=== PATIENT | male | born 1975 | race Two or more races ===

== ENCOUNTER 2016-05-25 11:35 | Inpatient (IN) | payer OTHER ==
[2016-05-25 11:53] VITALS: BMI 31.7
--- NOTE | 2016-05-25 13:36 | HP ---
CIWA Score - CIWA Score Nausea/Vomitin-No Nausea/No Vomiting Muscle Tremors: 4-Moderate,w/Arms Extend Anxiety: 4-Mod. Anxious/Guarded Agitation: 3 Paroxysmal Sweats: 4-Forehead w/Sweat Beads Orientation: 0-Oriented Tacttile Disturbances: 3-Moderate Itch/Numb/Burn Auditory Disturbances: 0-None Visual Disturbances: 0-None Headache: 0-None Present CIWA-Ar Total Score: 18 Admission ROS S - HPI Chief Complaint: DETOX TX FOR ALCOHOL DEPENDENCE Allergies/Adverse Reactions: Allergies Allergy/AdvReac Type Severity Reaction Status Date / Time shrimp Allergy Severe Swelling Verified 05/25/16 12:41 No Known Drug Allergies Allergy Mild Verified 05/25/16 12:41 History of Present Illness: 40 Y/O H/M WITH A HX OF ALCOHOL,COCAINE,MARIJUANA DEPENDENCE SEEKING DETOX TX. PT IS ON H.E.L.P.-MMTP. PT ALSO USES KLONOPIN AND K2 SPORADICALLY. Exam Limitations: No Limitations - Ebola screening Have you traveled outside of the country in the last 21 days: No Have you had contact with anyone from an Ebola affected area: No Have you been sick,other than usual withdrawal symptoms: No Do you have a fever: No - Review of Systems Constitutional: Chills, Diaphoresis, Loss of Appetite, Night Sweats EENT: reports: Blurred Vision, Tearing, Nose Congestion Respiratory: reports: No Symptoms reported Cardiac: reports: Lightheadedness GI: reports: Vomiting : reports: No Symptoms Reported Musculoskeletal: reports: Muscle Pain (AND SPASMS) Integumentary: reports: No Symptoms Reported Neuro: reports: Tremors, Unsteady Gait, Dizziness Endocrine: reports: No Symptoms Reported Hematology: reports: No Symptoms Reported Psychiatric: reports: Orientated x3, Anxious, Depressed Other Systems: Reviewed and Negative Patient History - Patient Medical History Hx Anemia: No Hx Asthma: No Hx Chronic Obstructive Pulmonary Disease (COPD): No Hx Cancer: No Hx Cardiac Disorders: No Hx Congestive Heart Failure: No Hx Hypertension: No Hx Hypercholesterolemia: No Hx Pacemaker: No HX Cerebrovascular Accident: No Hx Seizures: No Hx Dementia: No Hx Diabetes: No Hx Gastrointestinal Disorders: No Hx Liver Disease: No Hx Genitourinary Disorders: No Hx Sexually Transmitted Disorders: No Hx Renal Disease (ESRD): No Hx Thyroid Disease: No Hx Human Immunodeficiency Virus (HIV): No (LAST 10/15/14) Hx Hepatitis C: No Hx Depression: Yes (ON MEDS) Hx Suicide Attempt: Yes (Tried to jump on train tracks in 2012;DENIES CURRENT IDEATIONS.) Hx Bipolar Disorder: Yes Hx Schizophrenia: No - Patient Surgical History Past Surgical History: No Hx Neurologic Surgery: No Hx Cataract Extraction: No Hx Cardiac Surgery: No Hx Lung Surgery: No Hx Breast Surgery: No Hx Breast Biopsy: No Hx Abdominal Surgery: No Hx Appendectomy: No Hx Cholecystectomy: No Hx Genitourinary Surgery: No Hx Orthopedic Surgery: No Anesthesia Reaction: No - PPD History Previous Implant?: Yes Documented Results: Negative w/o proof Implanted On Prior R Admission?: Yes Date: 10/17/14 Results: 0 MM PPD to be Administered?: Yes - Reproductive History Patient is a Female of Child Bearing Age (11 -55 yrs old): No (MALE) - Smoking Cessation Smoking history: Current every day smoker Have you smoked in the past 12 months: Yes Aproximately how many cigarettes per day: 5 Hx Chewing Tobacco Use: No Initiated information on smoking cessation: Yes 'Breaking Loose' booklet given: 05/25/16 - Substance & Tx. History Hx Alcohol Use: Yes (BARCADI) Hx Substance Use: Yes (COCAINE/PCP/K2/MARIJUANA/KLONOPIN) Substance Use Type: Alcohol, Cocaine, Marijuana, Tranquilizers Hx Substance Use Treatment: Yes ([facility]) - Substances Abused Alcohol Route: Oral Frequency: Daily Amount used: 1 AND 1/2 PINTS VODKA Age of first use: 27 Date of Last Use: 05/24/16 PCP Route: Smoking Frequency: Daily Amount used: 1 JOINT Age of first use: 30 Date of Last Use: 05/24/16 Cocaine Route: Injection Frequency: Daily Amount used: 3-4 BAGS Age of first use: 27 Date of Last Use: 05/23/16 K2 Route: Smoking Frequency: Daily Amount used: 1-2 JOINTS Age of first use: 40 Date of Last Use: 05/24/16 Family Disease History - Family Disease History Family Disease History: Diabetes: Mother ( 2009) Admission Physical Exam BHS - Vital Signs Vital Signs: Vital Signs - 24 hr 05/25/16 11:50 Temperature 97.2 F L Pulse Rate 69 Respiratory 18 Rate Blood Pressure 105/56 - Physical General Appearance: Yes: Moderate Distress, Obese, Irritable, Sweating, Anxious HEENTM: Yes: EOMI, Normocephalic, MARI, Pharynx Normal Respiratory: Yes: Chest Non-Tender, Lungs Clear, Normal Breath Sounds, No Respiratory Distress Breast: Yes: Breast Exam Deferred Cardiology: Yes: Regular Rhythm, Regular Rate, S1, S2 Abdominal: Yes: Normal Bowel Sounds, Non Tender, Soft Genitourinary: Yes: Other (N/C) Back: Yes: Within Normal Limits Musculoskeletal: Yes: full range of Motion, Gait Steady Extremities: Yes: Normal Range of Motion, Non-Tender 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 NML intact, Fully Oriented, Alert, Motor Strength 5/5 Integumentary: Yes: Warm, Diaphoresis, Moist Lymphatic: Yes: Within Normal Limits - Diagnostic (1) Alcohol dependence with uncomplicated withdrawal Current Visit: Yes Status: Acute (2) Nicotine dependence Current Visit: Yes Status: Acute Qualifiers: Nicotine product type: cigarettes Substance use status: in withdrawal Qualified Code(s): F17.213 - Nicotine dependence, cigarettes, with withdrawal (3) Cocaine dependence, uncomplicated Current Visit: Yes Status: Acute (4) Cannabis dependence, uncomplicated Current Visit: Yes Status: Acute (5) PCP dependence Current Visit: Yes Status: Acute (6) Methadone maintenance therapy patient Current Visit: Yes Status: Chronic Cleared for Admission [facility] - Detox or Rehab [facility] Level of Care: Medically Managed Detox Regimen/Protocol: Librium [facility] Breath Alcohol Content Breath Alcohol Content: 0 Urine Drug Screen - Results Drug Screen Negative: No Urine Drug Screen Results: THC-Marijuana, SOURAV-Cocaine, PCP-Phencyclidine, MTD- Methadone
[2016-05-25] MEDS ORDERED: MAGNESIUM HYDROX 2400MG/30ML ORAL SUSPENSION 30 ML CUP PO PRN (13:47)
[2016-05-25] MEDS ORDERED: ACETAMINOPHEN 325 MG TABLET (FP) PO PRN (13:47)
[2016-05-25] MEDS ORDERED: NICOTINE POLACRILEX 4 MG GUM BUC PRN (13:47)
[2016-05-25] MEDS ORDERED: MAGNESIUM CITRATE 300 ML BOTTLE PO PRN (13:47)
[2016-05-25] MEDS ORDERED: IBUPROFEN 400 MG TABLET (FP) PO PRN (13:47)
[2016-05-25] MEDS ORDERED: diphenhydrAMINE HCL 50 MG CAPSULE PO PRN (13:47)
[2016-05-25] MEDS ORDERED: hydrOXYzine PAMOATE 25 MG CAPSULE (FP) PO PRN (13:47)
[2016-05-25] MEDS ORDERED: MAG HYDROX/AL HYDROX/SIMETH 30 ML UNIT-DOSE CUP PO PRN (13:47)
[2016-05-25] MEDS ORDERED: chlordiazePOXIDE HCL 25 MG CAPSULE PO PRN (13:47)
[2016-05-25] MEDS ORDERED: guaiFENesin/D-METHORPHAN HB 10 ML UNIT-DOSE CUPS PO PRN (13:47)
[2016-05-25] MEDS ORDERED: LOPERAMIDE HCL 2 MG CAPSULE PO PRN (13:47)
[2016-05-25] MEDS ORDERED: P-EPHED 60MG/TRIPROLIDI 2.5MG TABLET PO PRN (13:47)
[2016-05-25] MEDS ORDERED: MENTHOL/PHENOL 1 EACH UD MM PRN (13:47)
[2016-05-25] MEDS ORDERED: chlordiazePOXIDE HCL 25 MG CAPSULE PO ONE (14:05)
[2016-05-25] MEDS: NICOTINE 21 MG/24 HOURS TOPICAL PATCH TD SCH (14:58)
[2016-05-25] MEDS: chlordiazePOXIDE HCL 25 MG CAPSULE PO SCH ×2 (17:02→22:37)
[2016-05-25 20:17] LABS: URINE APPEARANCE CLEAR; URINE BILIRUBIN NEGATIVE (NEGATIVE); URINE BLOOD NEGATIVE (NEGATIVE); URINE COLOR YELLOW; URINE GLUCOSE (UA) NEGATIVE (NEGATIVE); URINE KETONE NEGATIVE (NEGATIVE); URINE LEUK ESTERASE NEGATIVE (NEGATIVE); URINE NITRITE NEGATIVE (NEGATIVE); URINE PROTEIN NEGATIVE (NEGATIVE); URINE UROBILINOGEN NEGATIVE E.U./dl (0.2-1.0)
[2016-05-25 20:36] LABS: HIV 1 & 2 AB NEGATIVE; HIV 1 AGp24 NEGATIVE
[2016-05-25] MEDS: THIAMINE HCL 100 MG TABLET (FP) PO SCH (22:37)
[2016-05-26] MEDS ORDERED: METHADONE HCL 40 MG DISPERSABLE TABLET ONE (04:57)
[2016-05-26] MEDS ORDERED: METHADONE HCL 10 MG TABLET ONE (04:57)
[2016-05-26] MEDS: METHADONE 40 MG, METHADONE 20 MG PO SCH (05:42)
[2016-05-26] MEDS: chlordiazePOXIDE HCL 25 MG CAPSULE PO SCH ×4 (05:43→22:37)
[2016-05-26] MEDS ORDERED: METHADONE HCL 10 MG TABLET PO SCH (06:00)
[2016-05-26 10:01] LABS: MCH 26.7 pg (25.7-33.7); MCHC 31.9 g/dl (32.0-35.9); MEAN CELL VOLUME 83.7 fl (80-96); MEAN PLT VOLUME 8.7 fl (7.5-11.1); PLATELET COUNT 185 K/MM3 (134-434); RDW 15.4 % (11.9-15.9); WHITE BLOOD COUNT 5.8 K/mm3 (4.0-10.0)
[2016-05-26 10:29] LABS: ALK PHOS 115 U/L (45-117); ANION GAP 7 (8-16); BILIRUBIN,TOTAL 0.4 mg/dL (0.2-1.0); CALCIUM 8.5 mg/dL (8.5-10.1); CO2 29 mmol/L (21-32); CREATININE 1.1 mg/dL (0.7-1.3); GLUCOSE,RANDOM 106 mg/dL (74-106); SGOT/AST 25 U/L (15-37); SGPT/ALT 43 U/L (12-78); TOT PROT 7.8 g/dl (6.4-8.2)
[2016-05-26] MEDS: PRENATAL VITAMINS W/ FOLIC ACID TABLET (FP) PO SCH (10:44)
[2016-05-26] MEDS: NICOTINE 21 MG/24 HOURS TOPICAL PATCH TD SCH (10:45)
[2016-05-26] MEDS ORDERED: ONDANSETRON *ODT* 4 MG TABLET SL PRN (11:19)
--- NOTE | 2016-05-26 11:20 | CONSULT ---
[facility] Psychiatric Consult - Data Date of interview: 05/26/16 Admission source: [facility] Identifying data: Another admission to [facility] for this 40 y/o male seeking detoxification treatment on [address] for alcohol,cocaine,opioid,nicotine, marijuana (K2) and benzodiazepine (klonopin) dependence.Patient is single without children,homeless ([facility] senior living),unemployed and supported on food stamps ( SSI benefits were cancelled during incarceration). Substance Abuse History: - Smoking Cessation. Smoking history: Current every day smoker. Have you smoked in the past 12 months: Yes. Aproximately how many cigarettes per day: 5. Hx Chewing Tobacco Use: No. Initiated information on smoking cessation: Yes. 'Breaking Loose' booklet given: 05/25/16. - Substance & Tx. History. Hx Alcohol Use: Yes (BARCADI). Hx Substance Use: Yes (COCAINE/ PCP/K2/MARIJUANA/KLONOPIN). Substance Use Type: Alcohol, Cocaine, Marijuana, Tranquilizers. Hx Substance Use Treatment: Yes ([facility]-DETOX). - Substances Abused. Alcohol. Route: Oral. Frequency: Daily. Amount used: 1 AND 1/2 PINTS VODKA. Age of first use: 27. Date of Last Use: 05/24/16. PCP. Route : Smoking. Frequency: Daily. Amount used: 1 JOINT. Age of first use: 30. Date of Last Use: 05/24/16. Cocaine. Route: Injection. Frequency: Daily. Amount used: 3-4 BAGS. Age of first use: 27. Date of Last Use: 05/23/16. K2. Route: Smoking. Frequency: Daily. Amount used: 1-2 JOINTS. Age of first use: 40. Date of Last Use: 05/24/16. Confirmed by the patient in this session. Medical History: Hepatitis C,as per self-report. Psychiatric History: Patient denies history of psychiatric hospitalizations.Known to the Mental Health system for several years.Diagnosed with Learning Disability (years with SSI benefits until incarceration).[facility] medications (olanzapine,risperdal,zoloft and others not recalled by patient).He endorses multiple diagnoses,including Bipolar Disorder, ONEIL,Schizophrenia.Patient admits to previous suicide attempts via hanging (2002 ) and self mutilation (wrist cutting).He is known to several facilities: [facility] [phone] + [facility] in [phone] + [facility] in [phone].Lost to follow up since his release from [facility] (served 5 years) in 2013.Mr Hernandez is curretly followed at the [facility] program in [facility].He is maintained on a regimen of lithium carbonte 300 mg/hs + zoloft 100 mg/day + zyprexa 10 mg/hs + ambien 10 mg/hs.Medications are confirmed by review of pharmacy claims (filled scripts for 05/21/16).Patient is on methadone maintenace (60 mg/day). Physical/Sexual Abuse/Trauma History: Patient denies history of sexual abuse. Additional Comment: Urine Drug Screen Results: THC-Marijuana, SOURAV-Cocaine, PCP- Phencyclidine, MTD-Methadone.Noted. Mental Status Exam - Mental Status Exam Alert and Oriented to: Time, Place, Person Cognitive Function: Good Patient Appearance: Well Groomed (tattoos on forearms) Mood: Hopeful, Euthymic Affect: Appropriate, Normal Range Patient Behavior: Appropriate, Cooperative Speech Pattern: Clear Voice Loudness: Normal Thought Process: Goal Oriented Thought Disorder: Not Present Hallucinations: Denies Suicidal Ideation: Denies Homicidal Ideation: Denies Insight/Judgement: Poor Sleep: Poorly, Difficulty falling asleep Appetite: Good Muscle strength/Tone: Normal Gait/Station: Normal Psychiatric Findings - Problem List ([place] 1, 2,3) (1) Alcohol dependence with uncomplicated withdrawal Current Visit: Yes Status: Acute (2) Cannabis dependence, uncomplicated Current Visit: Yes Status: Acute (3) Cocaine dependence, uncomplicated Current Visit: Yes Status: Acute (4) Nicotine dependence Current Visit: Yes Status: Acute Qualifiers: Nicotine product type: cigarettes Substance use status: in withdrawal Qualified Code(s): F17.213 - Nicotine dependence, cigarettes, with withdrawal (5) PCP dependence Current Visit: Yes Status: Acute (6) Opioid dependence with withdrawal Current Visit: Yes Status: Acute (7) Opioid dependence on agonist therapy Current Visit: Yes Status: Acute (8) Substance induced mood disorder Current Visit: Yes Status: Acute (9) Schizoaffective disorder Current Visit: Yes Status: Chronic (10) Essential hypertension Current Visit: Yes Status: Chronic (11) Insomnia Current Visit: Yes Status: Acute - Initial Treatment Plan Initial Treatment Plan: Psychoeducation.Detoxification.Medications as listed in Psychiatric History section.Preakness level is requested.Will follow results.Side effects/benefits discussed with the patient.He agrees with this plan of care.Observation.No need for scripts at discharge.
--- NOTE | 2016-05-26 12:25 | PN ---
[facility] CIWA - CIWA Score Nausea/Vomitin-No Nausea/No Vomiting Muscle Tremors: 4-Moderate,w/Arms Extend Anxiety: 4-Mod. Anxious/Guarded Agitation: 4-Moderately Restless Paroxysmal Sweats: 1-Minimal Palms Moist Orientation: 0-Oriented Tacttile Disturbances: 3-Moderate Itch/Numb/Burn Auditory Disturbances: 0-None Visual Disturbances: 0-None Headache: 0-None Present CIWA-Ar Total Score: 16 S Progress Note (SOAP) Subjective: ANXIETY, TREMORS, SWEATS, NAUSEA/VOMITING. Objective: 05/26/16 12:25 Vital Signs Temperature 97.0 F L 05/26/16 09:55 Pulse Rate 64 05/26/16 09:55 Respiratory Rate 18 05/26/16 09:55 Blood Pressure 121/79 05/26/16 09:55 O2 Sat by Pulse Oximetry (%) Laboratory Last Values WBC 5.8 K/mm3 (4.0-10.0) 05/26/16 06:00 RBC 4.90 M/mm3 (4.00-5.60) 05/26/16 06:00 Hgb 13.1 GM/dL (11.7-16.9) 05/26/16 06:00 Hct 41.0 % (35.4-49) 05/26/16 06:00 MCV 83.7 fl (80-96) 05/26/16 06:00 MCHC 31.9 g/dl (32.0-35.9) L 05/26/16 06:00 RDW 15.4 % (11.9-15.9) 05/26/16 06:00 Plt Count 185 K/MM3 (134-434) D 05/26/16 06:00 MPV 8.7 fl (7.5-11.1) 05/26/16 06:00 Sodium 138 mmol/L (136-145) 05/26/16 06:00 Potassium 4.5 mmol/L (3.5-5.1) 05/26/16 06:00 Chloride 102 mmol/L (98-107) 05/26/16 06:00 Carbon Dioxide 29 mmol/L (21-32) 05/26/16 06:00 Anion Gap 7 (8-16) L 05/26/16 06:00 BUN 11 mg/dL (7-18) 05/26/16 06:00 Creatinine 1.1 mg/dL (0.7-1.3) D 05/26/16 06:00 Creat Clearance w eGFR > 60 (>60) 05/26/16 06:00 Random Glucose 106 mg/dL (74-106) 05/26/16 06:00 Calcium 8.5 mg/dL (8.5-10.1) 05/26/16 06:00 Total Bilirubin 0.4 mg/dL (0.2-1.0) 05/26/16 06:00 AST 25 U/L (15-37) D 05/26/16 06:00 ALT 43 U/L (12-78) D 05/26/16 06:00 Alkaline Phosphatase 115 U/L (45-117) 05/26/16 06:00 Total Protein 7.8 g/dl (6.4-8.2) 05/26/16 06:00 Albumin 4.0 g/dl (3.4-5.0) 05/26/16 06:00 Urine Color Yellow 05/25/16 19:30 Urine Appearance Clear 05/25/16 19:30 Urine pH 5.0 (5.0-8.0) D 05/25/16 19:30 Ur Specific [place] 1.019 (1.001-1.035) 05/25/16 19:30 Urine Protein Negative (NEGATIVE) 05/25/16 19:30 Urine Glucose (UA) Negative (NEGATIVE) 05/25/16 19:30 Urine Ketones Negative (NEGATIVE) 05/25/16 19:30 Urine Blood Negative (NEGATIVE) 05/25/16 19:30 Urine Nitrite Negative (NEGATIVE) 05/25/16 19:30 Urine Bilirubin Negative (NEGATIVE) 05/25/16 19:30 Urine Urobilinogen Negative E.U./dl (0.2-1.0) 05/25/16 19:30 Ur Leukocyte Esterase Negative (NEGATIVE) 05/25/16 19:30 Hepatitis C Antibody >11.0 s/co ratio (0.0-0.9) H 05/25/16 13:50 HIV 1&2 Antibody Screen Negative 05/25/16 13:00 HIV P24 Antigen Negative 05/25/16 13:00 Assessment: 05/26/16 12:25 WITHDRAWAL SX Plan: CONTINUE DETOX
--- NOTE | 2016-05-26 12:53 | EKG ---
Test Reason : Blood Pressure : / mmHG Vent. Rate : 053 BPM Atrial Rate : 053 BPM P-R Int : 172 ms QRS Dur : 102 ms QT Int : 426 ms P-R-T Axes : 048 051 018 degrees QTc Int : 399 ms SINUS BRADYCARDIA OTHERWISE NORMAL ECG NO PREVIOUS ECGS AVAILABLE Confirmed by SWATI ISIDRO, ROXIE ([id number]) on 05/26/2016 12:53:10 PM Referred By: Confirmed By:ROXIE LONGORIA MD
[2016-05-26] MEDS: SERTRALINE HCL 50 MG TABLET (FP) PO SCH (15:46)
[2016-05-26] MEDS: OLANZapine 10 MG TABLET PO SCH (22:37)
[2016-05-26] MEDS: LITHIUM CARBONATE 300 MG CAPSULE (FP) PO SCH (22:37)
[2016-05-26] MEDS: THIAMINE HCL 100 MG TABLET (FP) PO SCH (22:37)
[2016-05-26] MEDS: ZOLPIDEM TARTRATE 10 MG TABLET (PARK CARE ONLY) PO PRN (22:38)
[2016-05-27] MEDS ORDERED: METHADONE HCL 10 MG TABLET ONE (03:05)
[2016-05-27] MEDS ORDERED: METHADONE HCL 40 MG DISPERSABLE TABLET ONE (03:05)
[2016-05-27] MEDS: chlordiazePOXIDE HCL 25 MG CAPSULE PO SCH ×2 (05:58→10:39)
[2016-05-27] MEDS: METHADONE 40 MG, METHADONE 20 MG PO SCH (05:58)
[2016-05-27] MEDS: NICOTINE 21 MG/24 HOURS TOPICAL PATCH TD SCH (10:39)
[2016-05-27] MEDS: SERTRALINE HCL 50 MG TABLET (FP) PO SCH (10:39)
[2016-05-27] MEDS: PRENATAL VITAMINS W/ FOLIC ACID TABLET (FP) PO SCH (10:39)
--- NOTE | 2016-05-27 11:12 | PN ---
[facility] CIWA - CIWA Score Nausea/Vomitin-No Nausea/No Vomiting Muscle Tremors: 4-Moderate,w/Arms Extend Anxiety: 4-Mod. Anxious/Guarded Agitation: 4-Moderately Restless Paroxysmal Sweats: 1-Minimal Palms Moist Orientation: 0-Oriented Tacttile Disturbances: 3-Moderate Itch/Numb/Burn Auditory Disturbances: 0-None Visual Disturbances: 0-None Headache: 0-None Present CIWA-Ar Total Score: 16 BHS Progress Note (SOAP) Subjective: ANXIETY,SWEATS,DECREASED TREMORS. Objective: 05/27/16 11:11 Vital Signs Temperature 97.4 F L 05/27/16 10:56 Pulse Rate 70 05/27/16 10:56 Respiratory Rate 18 05/27/16 10:56 Blood Pressure 113/68 05/27/16 10:56 O2 Sat by Pulse Oximetry (%) Laboratory Last Values WBC 5.8 K/mm3 (4.0-10.0) 05/26/16 06:00 RBC 4.90 M/mm3 (4.00-5.60) 05/26/16 06:00 Hgb 13.1 GM/dL (11.7-16.9) 05/26/16 06:00 Hct 41.0 % (35.4-49) 05/26/16 06:00 MCV 83.7 fl (80-96) 05/26/16 06:00 MCHC 31.9 g/dl (32.0-35.9) L 05/26/16 06:00 RDW 15.4 % (11.9-15.9) 05/26/16 06:00 Plt Count 185 K/MM3 (134-434) D 05/26/16 06:00 MPV 8.7 fl (7.5-11.1) 05/26/16 06:00 Sodium 138 mmol/L (136-145) 05/26/16 06:00 Potassium 4.5 mmol/L (3.5-5.1) 05/26/16 06:00 Chloride 102 mmol/L (98-107) 05/26/16 06:00 Carbon Dioxide 29 mmol/L (21-32) 05/26/16 06:00 Anion Gap 7 (8-16) L 05/26/16 06:00 BUN 11 mg/dL (7-18) 05/26/16 06:00 Creatinine 1.1 mg/dL (0.7-1.3) D 05/26/16 06:00 Creat Clearance w eGFR > 60 (>60) 05/26/16 06:00 Random Glucose 106 mg/dL (74-106) 05/26/16 06:00 Calcium 8.5 mg/dL (8.5-10.1) 05/26/16 06:00 Total Bilirubin 0.4 mg/dL (0.2-1.0) 05/26/16 06:00 AST 25 U/L (15-37) D 05/26/16 06:00 ALT 43 U/L (12-78) D 05/26/16 06:00 Alkaline Phosphatase 115 U/L (45-117) 05/26/16 06:00 Total Protein 7.8 g/dl (6.4-8.2) 05/26/16 06:00 Albumin 4.0 g/dl (3.4-5.0) 05/26/16 06:00 Urine Color Yellow 05/25/16 19:30 Urine Appearance Clear 05/25/16 19:30 Urine pH 5.0 (5.0-8.0) D 05/25/16 19:30 Ur Specific [place] 1.019 (1.001-1.035) 05/25/16 19:30 Urine Protein Negative (NEGATIVE) 05/25/16 19:30 Urine Glucose (UA) Negative (NEGATIVE) 05/25/16 19:30 Urine Ketones Negative (NEGATIVE) 05/25/16 19:30 Urine Blood Negative (NEGATIVE) 05/25/16 19:30 Urine Nitrite Negative (NEGATIVE) 05/25/16 19:30 Urine Bilirubin Negative (NEGATIVE) 05/25/16 19:30 Urine Urobilinogen Negative E.U./dl (0.2-1.0) 05/25/16 19:30 Ur Leukocyte Esterase Negative (NEGATIVE) 05/25/16 19:30 RPR Titer Nonreactive (NONREACTIVE) 05/26/16 06:00 Hepatitis C Antibody >11.0 s/co ratio (0.0-0.9) H 05/25/16 13:50 HIV 1&2 Antibody Screen Negative 05/25/16 13:00 HIV P24 Antigen Negative 05/25/16 13:00 LABS NOTED SPOKE TO PT ABOUT RESULT..PT HAS A HX OF HEP C AND NOW STATES "MY DOCTOR SAYS I DON'T NEED TREATMENT NOW".(PT DENIED HX ON ADMISSION WHEN ASKED). Assessment: 05/27/16 11:11 WITHDRAWAL SX Plan: CONTINUE DETOX
[2016-05-27] MEDS: chlordiazePOXIDE 5 MG CAPSULE PO SCH ×2 (17:53→22:39)
[2016-05-27] MEDS: THIAMINE HCL 100 MG TABLET (FP) PO SCH (22:39)
[2016-05-27] MEDS: OLANZapine 10 MG TABLET PO SCH (22:39)
[2016-05-27] MEDS: ZOLPIDEM TARTRATE 10 MG TABLET (PARK CARE ONLY) PO PRN (22:40)
[2016-05-27] MEDS: LITHIUM CARBONATE 300 MG CAPSULE (FP) PO SCH (22:43)
[2016-05-28 00:06] LABS: HCV LOG 10 4.614 (.)
[2016-05-28] MEDS ORDERED: METHADONE HCL 40 MG DISPERSABLE TABLET ONE (03:18)
[2016-05-28] MEDS ORDERED: METHADONE HCL 10 MG TABLET ONE (03:18)
[2016-05-28] MEDS: METHADONE 40 MG, METHADONE 20 MG PO SCH (05:54)
[2016-05-28] MEDS: chlordiazePOXIDE 5 MG CAPSULE PO SCH ×2 (05:54→10:50)
[2016-05-28] MEDS: SERTRALINE HCL 50 MG TABLET (FP) PO SCH (10:50)
[2016-05-28] MEDS: PRENATAL VITAMINS W/ FOLIC ACID TABLET (FP) PO SCH (10:50)
[2016-05-28] MEDS: NICOTINE 21 MG/24 HOURS TOPICAL PATCH TD SCH (10:50)
--- NOTE | 2016-05-28 11:30 | PN ---
B[facility] Progress Note (SOAP) Subjective: Sweating,interrupted sleep,restless Objective: 05/28/16 11:26 Vital Signs - 8 hr 05/28/16 05/28/16 05/28/16 03:30 06:53 09:55 Temperature 98.3 F 97.5 F L Pulse Rate 55 L 68 Respiratory 18 18 18 Rate Blood Pressure 153/91 117/70 Laboratory Last Values WBC 5.8 K/mm3 (4.0-10.0) 05/26/16 06:00 RBC 4.90 M/mm3 (4.00-5.60) 05/26/16 06:00 Hgb 13.1 GM/dL (11.7-16.9) 05/26/16 06:00 Hct 41.0 % (35.4-49) 05/26/16 06:00 MCV 83.7 fl (80-96) 05/26/16 06:00 MCHC 31.9 g/dl (32.0-35.9) L 05/26/16 06:00 RDW 15.4 % (11.9-15.9) 05/26/16 06:00 Plt Count 185 K/MM3 (134-434) D 05/26/16 06:00 MPV 8.7 fl (7.5-11.1) 05/26/16 06:00 Sodium 138 mmol/L (136-145) 05/26/16 06:00 Potassium 4.5 mmol/L (3.5-5.1) 05/26/16 06:00 Chloride 102 mmol/L (98-107) 05/26/16 06:00 Carbon Dioxide 29 mmol/L (21-32) 05/26/16 06:00 Anion Gap 7 (8-16) L 05/26/16 06:00 BUN 11 mg/dL (7-18) 05/26/16 06:00 Creatinine 1.1 mg/dL (0.7-1.3) D 05/26/16 06:00 Creat Clearance w eGFR > 60 (>60) 05/26/16 06:00 Random Glucose 106 mg/dL (74-106) 05/26/16 06:00 Calcium 8.5 mg/dL (8.5-10.1) 05/26/16 06:00 Total Bilirubin 0.4 mg/dL (0.2-1.0) 05/26/16 06:00 AST 25 U/L (15-37) D 05/26/16 06:00 ALT 43 U/L (12-78) D 05/26/16 06:00 Alkaline Phosphatase 115 U/L (45-117) 05/26/16 06:00 Total Protein 7.8 g/dl (6.4-8.2) 05/26/16 06:00 Albumin 4.0 g/dl (3.4-5.0) 05/26/16 06:00 Urine Color Yellow 05/25/16 19:30 Urine Appearance Clear 05/25/16 19:30 Urine pH 5.0 (5.0-8.0) D 05/25/16 19:30 Ur Specific [place] 1.019 (1.001-1.035) 05/25/16 19:30 Urine Protein Negative (NEGATIVE) 05/25/16 19:30 Urine Glucose (UA) Negative (NEGATIVE) 05/25/16 19:30 Urine Ketones Negative (NEGATIVE) 05/25/16 19:30 Urine Blood Negative (NEGATIVE) 05/25/16 19:30 Urine Nitrite Negative (NEGATIVE) 05/25/16 19:30 Urine Bilirubin Negative (NEGATIVE) 05/25/16 19:30 Urine Urobilinogen Negative E.U./dl (0.2-1.0) 05/25/16 19:30 Ur Leukocyte Esterase Negative (NEGATIVE) 05/25/16 19:30 [place] 0.1 MEQ/L (0.6-1.4) L 05/27/16 07:00 RPR Titer Nonreactive (NONREACTIVE) 05/26/16 06:00 Hepatitis C Antibody >11.0 s/co ratio (0.0-0.9) H 05/25/16 13:50 HCV Quantitation 34004 IU/mL (.) 05/26/16 08:12 HCV RNA log copies/mL 4.614 (.) 05/26/16 08:12 HIV 1&2 Antibody Screen Negative 05/25/16 13:00 HIV P24 Antigen Negative 05/25/16 13:00 labs noted Assessment: 05/28/16 11:29 Withdrawal sx. Plan: Continue detox
[2016-05-28] MEDS: chlordiazePOXIDE HCL 10 MG CAPSULE PO SCH ×2 (18:06→22:54)
[2016-05-28] MEDS: THIAMINE HCL 100 MG TABLET (FP) PO SCH (22:00)
[2016-05-28] MEDS: OLANZapine 10 MG TABLET PO SCH (22:54)
[2016-05-28] MEDS: LITHIUM CARBONATE 300 MG CAPSULE (FP) PO SCH (22:54)
[2016-05-28] MEDS: ZOLPIDEM TARTRATE 10 MG TABLET (PARK CARE ONLY) PO PRN (22:55)
[2016-05-29] MEDS ORDERED: METHADONE HCL 10 MG TABLET ONE (04:20)
[2016-05-29] MEDS ORDERED: METHADONE HCL 40 MG DISPERSABLE TABLET ONE (04:21)
[2016-05-29] MEDS: METHADONE 40 MG, METHADONE 20 MG PO SCH (06:06)
[2016-05-29] MEDS: chlordiazePOXIDE HCL 10 MG CAPSULE PO SCH (06:06)
[2016-05-29 07:07] VITALS: BP 140/91; PULSE 64; TEMP 96.3
--- NOTE | 2016-05-29 10:57 | DS ---
[facility] Detox Discharge Summary Admission Date: 05/25/16 Discharge Date: 05/29/16 - History Present History: Alcohol Dependence, Cocaine Dependence, Pcp Dependence, MMTP, K 2 Pertinent Past History: Hypertension Smoker - Physical Exam Results Vital Signs: Vital Signs Temperature 96.3 F L 05/29/16 07:06 Pulse Rate 64 05/29/16 07:06 Respiratory Rate 18 05/29/16 07:06 Blood Pressure 140/91 05/29/16 07:06 O2 Sat by Pulse Oximetry (%) Pertinent Admission Physical Exam Findings: Withdrawal Symptoms - Treatment Hospital Course: Detox Protocol Followed, Detoxed Safely, Responded well, Discharged Condition Good - Medication Discharge Medications: Ambulatory Orders Zolpidem Tartrate [Ambien] 5 mg PO HS PRN #14 tablet 10/16/14 Olanzapine [Zyprexa -] 20 mg PO HS #30 tablet 01/29/15 Sertraline HCl [Zoloft -] 150 mg PO DAILY #30 tablet 01/29/15 - Diagnosis (1) Alcohol dependence with uncomplicated withdrawal Status: Acute (2) Cannabis dependence, uncomplicated Status: Acute (3) Cocaine dependence, uncomplicated Status: Acute (4) Insomnia Status: Acute (5) Nicotine dependence Status: Acute Qualifiers: Nicotine product type: cigarettes Substance use status: in withdrawal Qualified Code(s): F17.213 - Nicotine dependence, cigarettes, with withdrawal (6) Opioid dependence on agonist therapy Status: Acute (7) PCP dependence Status: Acute (8) Substance induced mood disorder Status: Acute (9) Essential hypertension Status: Chronic (10) Methadone maintenance therapy patient Status: Chronic (11) Schizoaffective disorder Status: Chronic Qualifiers: Schizoaffective disorder type: unspecified Qualified Code(s): F25.9 - Schizoaffective disorder, unspecified (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
== END 2016-05-29 07:45 | disposition home or self-care (01) | DRG 773 ==
LOC: YASAS 11:35 → Y3N 13:44
PROVIDERS: ADMIT Internal Medicine; ATTEND Internal Medicine
PROC: HZ2ZZZZ Detoxification Services for Substance Abuse Treatment (ICD-10-PCS; principal; 2016-05-29)
DX: F11.23 Opioid dependence with withdrawal (principal); F10.230 Alcohol dependence with withdrawal, uncomplicated; F14.20 Cocaine dependence, uncomplicated; F12.20 Cannabis dependence, uncomplicated; F16.20 Hallucinogen dependence, uncomplicated; F17.210 Nicotine dependence, cigarettes, uncomplicated; F19.24 Other psychoactive substance dependence with psychoactive substance-induced mood disorder; F25.9 Schizoaffective disorder, unspecified; G47.00 Insomnia, unspecified; I10 Essential (primary) hypertension
CPT/HCPCS: 36415; 80053; 80178; 81003; 85027; 86593; 87389; 87522; 93005; 93010

== ENCOUNTER 2016-10-11 11:22 | Inpatient (IN) | payer OTHER ==
[2016-10-11 14:48] VITALS: BMI 29.5
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
[2016-10-11] MEDS ORDERED: ACETAMINOPHEN 325 MG TABLET (FP) PO PRN (15:54)
[2016-10-11] MEDS ORDERED: MAG HYDROX/AL HYDROX/SIMETH 30 ML UNIT-DOSE CUP PO PRN (15:54)
[2016-10-11] MEDS ORDERED: hydrOXYzine PAMOATE 25 MG CAPSULE (FP) PO PRN (15:54)
[2016-10-11] MEDS ORDERED: MENTHOL/PHENOL 1 EACH UD MM PRN (15:54)
[2016-10-11] MEDS ORDERED: MAGNESIUM HYDROX 2400MG/30ML ORAL SUSPENSION 30 ML CUP PO PRN (15:54)
[2016-10-11] MEDS ORDERED: chlordiazePOXIDE HCL 25 MG CAPSULE PO PRN (15:54)
[2016-10-11] MEDS ORDERED: MAGNESIUM CITRATE 300 ML BOTTLE PO PRN (15:54)
[2016-10-11] MEDS ORDERED: P-EPHED 60MG/TRIPROLIDI 2.5MG TABLET PO PRN (15:54)
[2016-10-11] MEDS ORDERED: guaiFENesin/D-METHORPHAN HB 10 ML UNIT-DOSE CUPS PO PRN (15:54)
[2016-10-11] MEDS ORDERED: IBUPROFEN 400 MG TABLET (FP) PO PRN (15:54)
[2016-10-11] MEDS ORDERED: NICOTINE POLACRILEX 2 MG GUM BUC PRN (15:54)
[2016-10-11] MEDS ORDERED: LOPERAMIDE HCL 2 MG CAPSULE PO PRN (15:54)
[2016-10-11] MEDS ORDERED: chlordiazePOXIDE HCL 25 MG CAPSULE PO ONE (17:15)
[2016-10-11] MEDS: chlordiazePOXIDE HCL 25 MG CAPSULE PO SCH ×2 (18:28→22:34)
[2016-10-11] MEDS: NICOTINE 14 MG/24 HOURS TOPICAL PATCH TD SCH (18:28)
[2016-10-11] MEDS ORDERED: diphenhydrAMINE HCL 50 MG CAPSULE PO PRN (22:00)
[2016-10-11] MEDS: THIAMINE HCL 100 MG TABLET (FP) PO SCH (22:34)
[2016-10-11 23:19] LABS: URINE APPEARANCE SLCLOUDY; URINE BILIRUBIN NEGATIVE (NEGATIVE); URINE BLOOD NEGATIVE (NEGATIVE); URINE COLOR YELLOW; URINE GLUCOSE (UA) NEGATIVE (NEGATIVE); URINE KETONE NEGATIVE (NEGATIVE); URINE LEUK ESTERASE NEGATIVE (NEGATIVE); URINE NITRITE NEGATIVE (NEGATIVE); URINE PROTEIN NEGATIVE (NEGATIVE); URINE UROBILINOGEN NEGATIVE mg/dL (0.2-1.0)
[2016-10-12] MEDS ORDERED: METHADONE HCL 40 MG DISPERSABLE TABLET ONE (04:28)
[2016-10-12] MEDS ORDERED: METHADONE HCL 10 MG TABLET ONE (04:28)
[2016-10-12] MEDS: chlordiazePOXIDE HCL 25 MG CAPSULE PO SCH ×4 (05:08→22:32)
[2016-10-12] MEDS: METHADONE 40 MG, METHADONE 20 MG PO SCH (05:08)
[2016-10-12] MEDS ORDERED: METHADONE HCL 10 MG TABLET PO SCH ×2 (06:00)
[2016-10-12 10:23] LABS: MCH 27.7 pg (25.7-33.7); MEAN PLT VOLUME 8.4 fl (7.5-11.1); PLATELET COUNT 183 K/MM3 (134-434); RDW 13.8 % (11.9-15.9); WHITE BLOOD COUNT 4.5 K/mm3 (4.0-10.0)
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
[2016-10-12 10:46] LABS: ALBUMIN 3.1 g/dl (3.4-5.0); ANION GAP 4 (8-16); CALCIUM 8.8 mg/dL (8.5-10.1); CO2 31 mmol/L (21-32); GLUCOSE,RANDOM 83 mg/dL (74-106)
[2016-10-12] MEDS ORDERED: IBUPROFEN 400 MG TABLET (FP) PO PRN (10:46)
[2016-10-12 10:48] LABS: ALK PHOS 91 U/L (45-117); BILIRUBIN,TOTAL 0.3 mg/dL (0.2-1.0); CREATININE 0.7 mg/dL (0.7-1.3); SGOT/AST 17 U/L (15-37); SGPT/ALT 23 U/L (12-78); TOT PROT 6.5 g/dl (6.4-8.2)
[2016-10-12] MEDS: PRENATAL VITAMINS W/ FOLIC ACID TABLET (FP) PO SCH (10:59)
[2016-10-12] MEDS: NICOTINE 14 MG/24 HOURS TOPICAL PATCH TD SCH (11:00)
[2016-10-12] MEDS: LIDOCAINE 5% TOPICAL PATCH TP SCH (11:06)
[2016-10-12 11:19] LABS: HIV 1 & 2 AB NEGATIVE; HIV 1 AGp24 NEGATIVE
--- NOTE | 2016-10-12 15:24 | CONSULT ---
[facility] Psychiatric Consult - Data Date of interview: 10/12/16 Admission source: [facility] Identifying data: Readmission to [facility] for this 41 y/o male seeking detoxification treatment on for alcohol and heroin dependence.Patient is single without children,homeless ([facility] correction),unemployed and supported on food stamps ( SSI benefits were cancelled during incarceration) .No changes since since most recent encounter in May 2016. Substance Abuse History: Domain discussed with the patient in this interview. - Smoking Cessation. Smoking history: Current every day smoker. Have you smoked in the past 12 months: Yes. Aproximately how many cigarettes per day: 5. Hx Chewing Tobacco Use: No. Initiated information on smoking cessation: Yes. 'Breaking Loose' booklet given: 10/11/16. - Substance & Tx. History. Hx Alcohol Use: Yes (RICK). Hx Substance Use: Yes (HEROIN). Substance Use Type: Alcohol, Heroin. Hx Substance Use Treatment: Yes (LAST TX AT [facility]) . - Substances Abused. Alcohol. Route: Oral. Frequency: 3-6 times per week. Amount used: RICK (1PINT). Age of first use: 27. Date of Last Use : 10/10/16. Heroin. Route: Injection. Frequency: Daily. Amount used: 2-3 BAGS DAILY. Age of first use: 27. Date of Last Use: 10/09/16. Patient confirmed information contained in this [facility] report. Medical History: Remarkable for hepatitis C. Psychiatric History: No history of psychiatric hospitalizations.Known to [facility] (admission in 2015).Long standing history of mental illness.Diagnosed with Bipolar Disorder,Schizophrenia and Learning Disorder ( years with SSI benefits until incarceration).Treated in jail with various medications (olanzapine,risperdal,zoloft and others).Patient admits to previous suicide attempts via hanging (2002) and self mutilation (wrist cutting).He is known to several facilities: [facility] in [phone] + [facility] in [phone] + [facility] in [phone].Mr Hernandez is still followed at the [facility] program in [facility].He is maintained on a regimen of lithium carbonate 300 mg/hs + zoloft 100 mg/day + zyprexa 10 mg/hs + ambien 10 mg/hs.Medications are confirmed by review of pharmacy claims (filled scripts for 10/04/16 at [facility]) .Patient is on methadone maintenance (60 mg/day). Physical/Sexual Abuse/Trauma History: Patient denies. Additional Comment: Urine Drug Screen Results: MTD-Methadone.Noted. Psychiatric Findings - Problem List ([place] 1, 2,3) (1) Alcohol dependence with uncomplicated withdrawal Current Visit: Yes Status: Acute (2) Opioid dependence on agonist therapy Current Visit: Yes Status: Acute (3) Nicotine dependence Current Visit: Yes Status: Acute Qualifiers: Nicotine product type: cigarettes Substance use status: in withdrawal Qualified Code(s): F17.213 - Nicotine dependence, cigarettes, with withdrawal (4) Substance induced mood disorder Current Visit: Yes Status: Acute (5) Schizoaffective disorder Current Visit: Yes Status: Chronic Qualifiers: Schizoaffective disorder type: unspecified Qualified Code(s): F25.9 - Schizoaffective disorder, unspecified (6) Essential hypertension Current Visit: Yes Status: Chronic (7) Insomnia Current Visit: Yes Status: Acute - Initial Treatment Plan Initial Treatment Plan: Psychoeducation.Detoxification.Previous records are reviewed.Patient is a fair historian.Medications are confirmed via pharmacy claims of 10/04/16.NO scripts needed at discharge (supply is still available) .Medications : lithium carbonate 300 mg po hs + zoloft 100 mg po daily + zyprexa 10 mg po hs + ambien 5 mg po hs prn.Ordered.Side effects/benefits of each drug are discussed with the patient.Made aware,in particular of risk of renal dysfunction,alopecia areata,thyroid dysfunction,cardiac adverse events ( lithium),metabolic syndrome (zyprexa),sexual dysfunction,suicidal ideation ( sertraline) and parasomnias (ambien).No prior history of adverse effects from that regimen as per self-report.Patient insists on taking these medications.[place] is resume in the absence of a level at this time (requested/ pending) in view of normal electrolytes,normal renal function (BUN + 11 - creatinine = 0.7 - GFR > 60 as of 10/12/16) and absence of signs/symptoms of lithium toxicity.Patient is in agreeement with [facility] follow lithium level.Observation.
[2016-10-12] MEDS: ZOLPIDEM TARTRATE 5 MG TABLET PO PRN (22:31)
[2016-10-12] MEDS: OLANZapine 10 MG TABLET PO SCH (22:31)
[2016-10-12] MEDS: THIAMINE HCL 100 MG TABLET (FP) PO SCH (22:32)
[2016-10-12] MEDS: LITHIUM CARBONATE 300 MG CAPSULE (FP) PO SCH (22:32)
[2016-10-12] MEDS: LIDOCAINE PATCH REMOVAL MC SCH (23:10)
[2016-10-13] MEDS ORDERED: METHADONE HCL 10 MG TABLET ONE (04:37)
[2016-10-13] MEDS ORDERED: METHADONE HCL 40 MG DISPERSABLE TABLET ONE (04:37)
[2016-10-13] MEDS: METHADONE 40 MG, METHADONE 20 MG PO SCH (05:28)
[2016-10-13] MEDS: chlordiazePOXIDE HCL 25 MG CAPSULE PO SCH ×2 (05:28→10:27)
[2016-10-13] MEDS: NICOTINE 14 MG/24 HOURS TOPICAL PATCH TD SCH (10:27)
[2016-10-13] MEDS: LIDOCAINE 5% TOPICAL PATCH TP SCH (10:27)
[2016-10-13] MEDS: PRENATAL VITAMINS W/ FOLIC ACID TABLET (FP) PO SCH (10:27)
[2016-10-13] MEDS: SERTRALINE HCL 50 MG TABLET (FP) PO SCH (10:27)
--- NOTE | 2016-10-13 11:35 | PN ---
S CIWA - CIWA Score Nausea/Vomitin Muscle Tremors: 3 Anxiety: 3 Agitation: 3 Paroxysmal Sweats: 1-Minimal Palms Moist Orientation: 0-Oriented Tacttile Disturbances: 1-Very Mild Itch/Numbness Auditory Disturbances: 1-Very Mild Visual Disturbances: 1-Very Mild Sensitivity Headache: 2-Mild CIWA-Ar Total Score: 18 BHS Progress Note (SOAP) Subjective: ALERT,IRRITABLE,ANXIOUS,INTERRUPTED SLEEP,PAIN IN THE BOD Objective: 10/13/16 11:33 Vital Signs Temperature 97.7 F 10/13/16 09:43 Pulse Rate 72 10/13/16 09:43 Respiratory Rate 18 10/13/16 09:43 Blood Pressure 133/84 10/13/16 09:43 O2 Sat by Pulse Oximetry (%) 10/13/16 11:34 EKG NSR,INVERTED T IN V2 AND V3 Laboratory Last Values WBC 4.5 K/mm3 (4.0-10.0) 10/12/16 06:30 RBC 4.42 M/mm3 (4.00-5.60) 10/12/16 06:30 Hgb 12.3 GM/dL (11.7-16.9) 10/12/16 06:30 Hct 37.1 % (35.4-49) 10/12/16 06:30 MCV 84.0 fl (80-96) 10/12/16 06:30 MCH 27.7 pg (25.7-33.7) 10/12/16 06:30 MCHC 33.0 g/dl (32.0-35.9) 10/12/16 06:30 RDW 13.8 % (11.9-15.9) D 10/12/16 06:30 Plt Count 183 K/MM3 (134-434) 10/12/16 06:30 MPV 8.4 fl (7.5-11.1) 10/12/16 06:30 Sodium 140 mmol/L (136-145) 10/12/16 06:30 Potassium 4.3 mmol/L (3.5-5.1) 10/12/16 06:30 Chloride 105 mmol/L (98-107) 10/12/16 06:30 Carbon Dioxide 31 mmol/L (21-32) 10/12/16 06:30 Anion Gap 4 (8-16) L 10/12/16 06:30 BUN 11 mg/dL (7-18) 10/12/16 06:30 Creatinine 0.7 mg/dL (0.7-1.3) D 10/12/16 06:30 Creat Clearance w eGFR > 60 (>60) 10/12/16 06:30 Random Glucose 83 mg/dL (74-106) D 10/12/16 06:30 Calcium 8.8 mg/dL (8.5-10.1) 10/12/16 06:30 Total Bilirubin 0.3 mg/dL (0.2-1.0) D 10/12/16 06:30 AST 17 U/L (15-37) D 10/12/16 06:30 ALT 23 U/L (12-78) D 10/12/16 06:30 Alkaline Phosphatase 91 U/L (45-117) D 10/12/16 06:30 Total Protein 6.5 g/dl (6.4-8.2) 10/12/16 06:30 Albumin 3.1 g/dl (3.4-5.0) L D 10/12/16 06:30 Urine Color Yellow 10/11/16 23:00 Urine Appearance Slcloudy 10/11/16 23:00 Urine pH 6.0 (5.0-8.0) 10/11/16 23:00 Ur Specific [place] 1.020 (1.005-1.025) 10/11/16 23:00 Urine Protein Negative (NEGATIVE) 10/11/16 23:00 Urine Glucose (UA) Negative (NEGATIVE) 10/11/16 23:00 Urine Ketones Negative (NEGATIVE) 10/11/16 23:00 Urine Blood Negative (NEGATIVE) 10/11/16 23:00 Urine Nitrite Negative (NEGATIVE) 10/11/16 23:00 Urine Bilirubin Negative (NEGATIVE) 10/11/16 23:00 Urine Urobilinogen Negative mg/dL (0.2-1.0) 10/11/16 23:00 Ur Leukocyte Esterase Negative (NEGATIVE) 10/11/16 23:00 RPR Titer Nonreactive (NONREACTIVE) 10/12/16 06:30 HIV 1&2 Antibody Screen Negative 10/12/16 06:30 HIV P24 Antigen Negative 10/12/16 06:30 LABS PENDING Assessment: 10/13/16 11:35 WITHDRAWAL SYMPTOM Plan: CONTINUE DETOX
--- NOTE | 2016-10-13 12:23 | EKG ---
Test Reason : Blood Pressure : / mmHG Vent. Rate : 062 BPM Atrial Rate : 062 BPM P-R Int : 160 ms QRS Dur : 100 ms QT Int : 408 ms P-R-T Axes : 068 069 046 degrees QTc Int : 414 ms NORMAL SINUS RHYTHM T WAVE ABNORMALITY, CONSIDER ANTERIOR ISCHEMIA ABNORMAL ECG WHEN COMPARED WITH ECG OF 25-MAY-2016 15:02, T WAVE INVERSION NOW EVIDENT IN ANTERIOR LEADS Confirmed by SWATI ISIDRO, ROXIE ([id number]) on 10/13/2016 12:23:08 PM Referred By: Confirmed By:ROXIE LONGORIA MD
[2016-10-13] MEDS: chlordiazePOXIDE 5 MG CAPSULE PO SCH ×2 (17:15→22:27)
[2016-10-13] MEDS: THIAMINE HCL 100 MG TABLET (FP) PO SCH (22:27)
[2016-10-13] MEDS: OLANZapine 10 MG TABLET PO SCH (22:28)
[2016-10-13] MEDS: ZOLPIDEM TARTRATE 5 MG TABLET PO PRN (22:28)
[2016-10-13] MEDS: LITHIUM CARBONATE 300 MG CAPSULE (FP) PO SCH (22:28)
[2016-10-13] MEDS: LIDOCAINE PATCH REMOVAL MC SCH (22:30)
[2016-10-14] MEDS ORDERED: METHADONE HCL 40 MG DISPERSABLE TABLET ONE (05:51)
[2016-10-14] MEDS ORDERED: METHADONE HCL 10 MG TABLET ONE (05:51)
[2016-10-14] MEDS: METHADONE 40 MG, METHADONE 20 MG PO SCH (05:52)
[2016-10-14] MEDS: chlordiazePOXIDE 5 MG CAPSULE PO SCH ×2 (05:52→10:43)
[2016-10-14] MEDS: PRENATAL VITAMINS W/ FOLIC ACID TABLET (FP) PO SCH (10:42)
[2016-10-14] MEDS: SERTRALINE HCL 50 MG TABLET (FP) PO SCH (10:42)
[2016-10-14] MEDS: LIDOCAINE 5% TOPICAL PATCH TP SCH (10:43)
[2016-10-14] MEDS: NICOTINE 14 MG/24 HOURS TOPICAL PATCH TD SCH (10:44)
--- NOTE | 2016-10-14 12:37 | PN ---
S Progress Note (SOAP) Subjective: ALERT,IRRITABLE,ANXIOUS,INTERRUPTED SLEEP Objective: 10/14/16 12:36 Vital Signs Temperature 99.5 F 10/14/16 10:00 Pulse Rate 86 10/14/16 10:00 Respiratory Rate 20 10/14/16 10:00 Blood Pressure 118/4 10/14/16 10:00 O2 Sat by Pulse Oximetry (%) Assessment: 10/14/16 12:36 WITHDRAWAL SYMPTOM Plan: CONTINUE DETOX
[2016-10-14] MEDS: chlordiazePOXIDE HCL 10 MG CAPSULE PO SCH ×2 (17:29→22:36)
[2016-10-14] MEDS: OLANZapine 10 MG TABLET PO SCH (22:36)
[2016-10-14] MEDS: LITHIUM CARBONATE 300 MG CAPSULE (FP) PO SCH (22:36)
[2016-10-14] MEDS: THIAMINE HCL 100 MG TABLET (FP) PO SCH (22:36)
[2016-10-14] MEDS: LIDOCAINE PATCH REMOVAL MC SCH (23:03)
[2016-10-15] MEDS ORDERED: METHADONE HCL 40 MG DISPERSABLE TABLET ONE (04:54)
[2016-10-15] MEDS ORDERED: METHADONE HCL 10 MG TABLET ONE (04:54)
[2016-10-15] MEDS: METHADONE 40 MG, METHADONE 20 MG PO SCH (05:23)
[2016-10-15] MEDS: chlordiazePOXIDE HCL 10 MG CAPSULE PO SCH (05:23)
[2016-10-15 06:32] VITALS: BP 123/59; PULSE 57; TEMP 98.3
--- NOTE | 2016-10-15 08:09 | DS ---
[facility] Detox Discharge Summary Admission Date: 10/11/16 Discharge Date: 10/15/16 - History Present History: Alcohol Dependence Additional Comments: follow up with after care program as arrangement Pertinent Past History: nicotine dependence mmtp - Physical Exam Results Vital Signs: Vital Signs Temperature 98.3 F 10/15/16 06:31 Pulse Rate 57 L 10/15/16 06:31 Respiratory Rate 16 10/15/16 06:31 Blood Pressure 123/59 10/15/16 06:31 O2 Sat by Pulse Oximetry (%) Pertinent Admission Physical Exam Findings: withdrawal symptom - Treatment Hospital Course: Detox Protocol Followed, Detoxed Safely, Responded well, Discharged Condition Good, Rehab Referral Accepted Patient has Accepted a Rehab Referral to: [facility] - Medication Discharge Medications: Ambulatory Orders Lawtey Carbonate [Eskalith -] 300 mg PO DAILY MDD 300MG 10/11/16 Olanzapine [Zyprexa -] 10 mg PO HS MDD 10 MG 10/11/16 Sertraline HCl [Zoloft -] 100 mg PO DAILY MDD 100 MG 10/11/16 - Diagnosis (1) Alcohol dependence with uncomplicated withdrawal Status: Acute (2) Methadone maintenance therapy patient Status: Chronic (3) Schizoaffective disorder Status: Chronic Qualifiers: Schizoaffective disorder type: unspecified Qualified Code(s): F25.9 - Schizoaffective disorder, unspecified - AMA Did Patient Leave Against Medical Advice: No
== END 2016-10-15 06:50 | disposition home or self-care (01) | DRG 773 ==
LOC: YASAS 11:22 → Y6N 16:28
PROVIDERS: ADMIT Internal Medicine; ATTEND Internal Medicine
PROC: HZ2ZZZZ Detoxification Services for Substance Abuse Treatment (ICD-10-PCS; principal; 2016-10-15)
DX: F11.20 Opioid dependence, uncomplicated (principal); F10.230 Alcohol dependence with withdrawal, uncomplicated; F17.210 Nicotine dependence, cigarettes, uncomplicated; F32.9 Major depressive disorder, single episode, unspecified; F25.9 Schizoaffective disorder, unspecified; F19.24 Other psychoactive substance dependence with psychoactive substance-induced mood disorder; G47.00 Insomnia, unspecified; I10 Essential (primary) hypertension
CPT/HCPCS: 36415; 80053; 80178; 81003; 85027; 86593; 87389; 93005; 93010

== ENCOUNTER 2017-02-03 10:05 | Inpatient (IN) | payer OTHER ==
[2017-02-03 12:16] VITALS: BMI 29.0
[2017-02-03] MEDS ORDERED: P-EPHED 60MG/TRIPROLIDI 2.5MG TABLET PO PRN (14:07)
[2017-02-03] MEDS ORDERED: MENTHOL/PHENOL 1 EACH UD MM PRN (14:07)
[2017-02-03] MEDS ORDERED: IBUPROFEN 400 MG TABLET (FP) PO PRN (14:07)
[2017-02-03] MEDS ORDERED: guaiFENesin/D-METHORPHAN HB 10 ML UNIT-DOSE CUPS PO PRN (14:07)
[2017-02-03] MEDS ORDERED: diazePAM 5 MG TABLET PO ONE (14:07)
[2017-02-03] MEDS ORDERED: MAGNESIUM CITRATE 300 ML BOTTLE PO PRN (14:07)
[2017-02-03] MEDS ORDERED: ACETAMINOPHEN 325 MG TABLET (FP) PO PRN (14:07)
[2017-02-03] MEDS ORDERED: NICOTINE POLACRILEX 2 MG GUM BUC PRN (14:07)
[2017-02-03] MEDS ORDERED: MAGNESIUM HYDROX 2400MG/30ML ORAL SUSPENSION 30 ML CUP PO PRN (14:07)
[2017-02-03] MEDS ORDERED: MAG HYDROX/AL HYDROX/SIMETH 30 ML UNIT-DOSE CUP PO PRN (14:07)
[2017-02-03] MEDS ORDERED: LOPERAMIDE HCL 2 MG CAPSULE PO PRN (14:07)
--- NOTE | 2017-02-03 14:07 | HP ---
COWS - Scale Resting Pulse: 1= [place] 81-100 Sweatin= Chills/Flushing Restless Observation: 1= Difficult to Sit Still Pupil Size: 1= Pupils >than Normal Bone or Joint Aches: 1= Mild Discomfort Runny Nose/ Eye Tearin= Runny Nose/Eyes GI Upset > 30mins: 2= Nausea/Diarrhea Tremor Observation: 2= Slight Tremor Visible Yawning Observation: 1= 1-2x During Session Anxiety or Irritability: 2=Irritable/Anxious Goose Flesh Skin: 3=Piloerection COWS Score: 17 CIWA Score - CIWA Score Nausea/Vomitin Muscle Tremors: 4-Moderate,w/Arms Extend Anxiety: 3 Agitation: 3 Paroxysmal Sweats: 3 Orientation: 0-Oriented Tacttile Disturbances: 0-None Auditory Disturbances: 0-None Visual Disturbances: 0-None Headache: 3-Moderate CIWA-Ar Total Score: 19 Admission ROS BHS - HPI Chief Complaint: alcohol/klonapin and heroin withdrawal sx Allergies/Adverse Reactions: Allergies Allergy/AdvReac Type Severity Reaction Status Date / Time shrimp Allergy Severe Swelling Verified 02/03/17 12:02 No Known Drug Allergies Allergy Mild Verified 02/03/17 12:02 History of Present Illness: 41 yo m with h/o polysubstance use and multiple admissions to [facility] for [facility] detox, was recently d/c from [facility] and started drinking regularly and using klonpain every day to prevent heorin withdrawal sx, last used ysterday, now with withdrawal sx. PMHX schizoaffective do taking psych medicatons, Hep + ve no treatment indicated at this time, nicotine dependence, regularly uses cocaine adn PCP, smoke marijuana. no sieuzres or DTs reported. no no SI, 2014 reportedly [place] train tracks and admitted for si ideation. Exam Limitations: No Limitations - Ebola screening Have you traveled outside of the country in the last 21 days: No (N) Have you had contact with anyone from an Ebola affected area: No Have you been sick,other than usual withdrawal symptoms: No Do you have a fever: No - Review of Systems Constitutional: Chills, Diaphoresis, Malaise, Night Sweats, Changes in sleep, Unexplained wgt Loss EENT: reports: Nose Congestion Respiratory: reports: No Symptoms reported Cardiac: reports: No Symptoms Reported GI: reports: Diarrhea, Nausea, Poor Appetite, Poor Fluid Intake, Abdominal cramping : reports: No Symptoms Reported Musculoskeletal: reports: Back Pain, Joint Pain, Muscle Pain, Joint Stiffness ( left hip no h/o injury reported) Integumentary: reports: Flushing, Sweating Neuro: reports: Headache (micgraines, seer), Tremors, Weakness Hematology: reports: No Symptoms Reported Psychiatric: reports: Judgement Intact, Mood/Affect Appropiate, Orientated x3, Anxious, Depressed Other Systems: Reviewed and Negative Patient History - Patient Medical History Hx Anemia: No Hx Asthma: No Hx Chronic Obstructive Pulmonary Disease (COPD): No Hx Cancer: No Hx Cardiac Disorders: No Hx Congestive Heart Failure: No Hx Hypertension: No Hx Hypercholesterolemia: No Hx Pacemaker: No HX Cerebrovascular Accident: No Hx Seizures: No Hx Dementia: No Hx Diabetes: No Hx Gastrointestinal Disorders: No Hx Liver Disease: No Hx Genitourinary Disorders: No Hx Sexually Transmitted Disorders: No Hx Renal Disease (ESRD): No Hx Thyroid Disease: No Hx Human Immunodeficiency Virus (HIV): No (NEGATIVE HX) Hx Hepatitis C: Yes (tested +ve results in chart no treatment indicated hasw gone for f/u) Hx Depression: No Hx Suicide Attempt: Yes (no SI at present, [place] train track 2013) Hx Bipolar Disorder: Yes Hx Schizophrenia: No - Patient Surgical History Past Surgical History: Yes Hx Neurologic Surgery: No Hx Cataract Extraction: No Hx Cardiac Surgery: No Hx Lung Surgery: Yes (DUE TO RIGHT SIDE LUNG PUNCTURE 08/2016) Hx Breast Surgery: No Hx Breast Biopsy: No Hx Abdominal Surgery: No Hx Appendectomy: No Hx Cholecystectomy: No Hx Genitourinary Surgery: No Hx Section: No Hx Orthopedic Surgery: No Anesthesia Reaction: No - PPD History Previous Implant?: Yes Documented Results: Negative w/proof Implanted On Prior R Admission?: Yes Date: 05/27/16 Results: 0 MM PPD to be Administered?: No - Reproductive History Patient is a Female of Child Bearing Age (11 -55 yrs old): No Patient : No - Smoking Cessation Smoking history: Current every day smoker Have you smoked in the past 12 months: Yes Aproximately how many cigarettes per day: 5 Hx Chewing Tobacco Use: No Initiated information on smoking cessation: Yes 'Breaking Loose' booklet given: 02/03/17 - Substance & Tx. History Hx Alcohol Use: Yes Hx Substance Use: Yes Substance Use Type: Alcohol, Heroin, Marijuana, Opiates, Prescribed, Tranquilizers Hx Substance Use [facility]: [facility] - Substances Abused Heroin Route: Injection Frequency: Daily Amount used: 4-5 bags Age of first use: 27 Date of Last Use: 02/03/17 Cocaine Route: Injection Frequency: Daily Amount used: $20-30 Age of first use: 27 Date of Last Use: 02/01/17 Benzodiazepine (Klonopin) Route: Oral Frequency: Daily Amount used: 1-2 tabs Age of first use: 41 Date of Last Use: 02/02/17 Alcohol Route: Oral Frequency: 3-6 times per week Amount used: vodka(1 pint)/cognac(1/2 -1 pint) Age of first use: 22 Date of Last Use: 02/03/17 Family Disease History - Family Disease History Family Disease History: Diabetes: Mother ( 2009) Admission Physical Exam [facility] - Vital Signs Vital Signs: Vital Signs - 24 hr 02/03/17 12:11 Temperature 96.5 F L Pulse Rate 86 Respiratory 20 Rate Blood Pressure 126/91 - Physical General Appearance: Yes: Nourished, Appropriately Dressed, Disheveled, Mild Distress, Tremorous, Irritable, Sweating, Anxious HEENTM: Yes: EOMI, Hearing grossly Normal, Normocephalic, Normal Voice, MARI, Pharynx Normal, Nasal Congestion, Rhinorrhea, Mabry (right eye tatoo) Respiratory: Yes: Within Normal Limits, Chest Non-Tender, Lungs Clear, Normal Breath Sounds, No Respiratory Distress, No Accessory Muscle Use Neck: Yes: Within Normal Limits, No masses,lesions,Nodules, Supple, Trachea in good position Breast: Yes: Breast Exam Deferred Cardiology: Yes: Within Normal Limits, Regular Rhythm, Regular Rate, S1, S2 Abdominal: Yes: Within Normal Limits, Normal Bowel Sounds, Non Tender, Flat, Soft Genitourinary: Yes: Within Normal Limits Back: Yes: Normal Inspection, Muscle Spasm Musculoskeletal: Yes: full range of Motion, Gait Steady, Pelvis Stable, Back pain (withdrawal sx), Joint Stiffness (left hip, new), Muscle Pain Extremities: Yes: Normal Capillary Refill, Normal Range of Motion, Non-Tender, Tremors 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, Fully Oriented, Alert, Motor Strength 5/5, Normal Response, Depressed Affect Integumentary: Yes: Normal Color, Warm, Clammy, Diaphoresis, Moist, Other (tear drop tatoo right eye) Lymphatic: Yes: Within Normal Limits - Addiitonal Findings: withdrawal sx - Diagnostic (1) Alcohol dependence with uncomplicated withdrawal Current Visit: No Status: Acute (2) Cocaine dependence, uncomplicated Current Visit: No Status: Acute (3) Nicotine dependence Current Visit: No Status: Acute Qualifiers: (4) Opioid dependence with withdrawal Current Visit: No Status: Acute (5) PCP dependence Current Visit: No Status: Acute (6) Substance induced mood disorder Current Visit: No Status: Acute (7) Essential hypertension Current Visit: No Status: Chronic (8) Schizoaffective disorder Current Visit: No Status: Chronic Qualifiers: Cleared for Admission S - Detox or Rehab [facility] Level of Care: Medically Managed Detox Regimen/Protocol: Methadone/Valium S Breath Alcohol Content Breath Alcohol Content: 0 Urine Drug Screen - Results Drug Screen Negative: No Urine Drug Screen Results: SOURAV-Cocaine, OPI-Opiates, MTD-Methadone, OXY- Oxycodone
[2017-02-03] MEDS ORDERED: METHADONE HCL 10 MG TABLET (FOR DETOX USE ONLY) PO ONE ×2 (14:11→23:00)
[2017-02-03 14:42] LABS: HIV 1 & 2 AB NEGATIVE; HIV 1 AGp24 NEGATIVE
[2017-02-03] MEDS: NICOTINE 14 MG/24 HOURS TOPICAL PATCH TD SCH (15:15)
[2017-02-03 18:21] LABS: URINE APPEARANCE CLOUDY; URINE BILIRUBIN NEGATIVE (NEGATIVE); URINE BLOOD NEGATIVE (NEGATIVE); URINE COLOR AMBER; URINE GLUCOSE (UA) NEGATIVE (NEGATIVE); URINE KETONE TRACE (NEGATIVE); URINE NITRITE NEGATIVE (NEGATIVE); URINE UROBILINOGEN NEGATIVE mg/dL (0.2-1.0)
[2017-02-03 18:35] LABS: URINE PROTEIN 1+ (NEGATIVE)
[2017-02-03 18:52] LABS: URINE HYALINE CAST 16 /lpf; URINE MUCUS MANY; URINE RBC 3; URINE WBC 1
[2017-02-03 21:48] LABS: URINE LEUK ESTERASE Negative (NEGATIVE)
[2017-02-03] MEDS: diazePAM 5 MG TABLET PO SCH (22:45)
[2017-02-03] MEDS: THIAMINE HCL 100 MG TABLET (FP) PO SCH (22:46)
[2017-02-04] MEDS: diazePAM 5 MG TABLET PO SCH ×3 (05:23→22:34)
[2017-02-04] MEDS: diazePAM 5 MG TABLET PO PRN ×2 (09:11→17:17)
[2017-02-04 09:53] LABS: MCH 25.8 pg (25.7-33.7); MCHC 31.8 g/dl (32.0-35.9); MEAN CELL VOLUME 81.3 fl (80-96); MEAN PLT VOLUME 9.2 fl (7.5-11.1); PLATELET COUNT 252 K/MM3 (134-434); RDW 14.8 % (11.9-15.9); WHITE BLOOD COUNT 7.1 K/mm3 (4.0-10.0)
[2017-02-04] MEDS ORDERED: METHADONE HCL 10 MG TABLET (FOR DETOX USE ONLY) PO SCH (10:00)
--- NOTE | 2017-02-04 10:09 | EKG ---
Test Reason : Blood Pressure : / mmHG Vent. Rate : 087 BPM Atrial Rate : 087 BPM P-R Int : 140 ms QRS Dur : 088 ms QT Int : 370 ms P-R-T Axes : 061 063 044 degrees QTc Int : 445 ms NORMAL SINUS RHYTHM POSSIBLE LEFT ATRIAL ENLARGEMENT WHEN COMPARED WITH ECG OF 11-OCT-2016 17:40, NO SIGNIFICANT CHANGE WAS FOUND Confirmed by RAVINDRA TURNER MD ([id number]) on 02/04/2017 10:09:02 AM Referred By: Confirmed By:RAVINDRA TURNER MD
[2017-02-04 10:11] LABS: ALBUMIN 4.1 g/dl (3.4-5.0); ALK PHOS 97 U/L (45-117); ANION GAP 10 (8-16); BILIRUBIN,TOTAL 0.7 mg/dL (0.2-1.0); CO2 26 mmol/L (21-32); CREATININE 0.8 mg/dL (0.7-1.3); GLUCOSE,RANDOM 97 mg/dL (74-106); SGOT/AST 46 U/L (15-37); SGPT/ALT 80 U/L (12-78); TOT PROT 8.1 g/dl (6.4-8.2)
[2017-02-04] MEDS: PRENATAL VITAMINS W/ FOLIC ACID TABLET (FP) PO SCH (10:54)
[2017-02-04] MEDS: NICOTINE 14 MG/24 HOURS TOPICAL PATCH TD SCH (10:54)
[2017-02-04] MEDS ORDERED: CYCLOBENZAPRINE HCL 10 MG TABLET (FP) PO PRN (11:02)
--- NOTE | 2017-02-04 11:08 | PN ---
[facility] CIWA - CIWA Score Nausea/Vomitin Muscle Tremors: 3 Anxiety: 3 Agitation: 3 Paroxysmal Sweats: 1-Minimal Palms Moist Orientation: 0-Oriented Tacttile Disturbances: 1-Very Mild Itch/Numbness Auditory Disturbances: 1-Very Mild Visual Disturbances: 0-None Headache: 2-Mild CIWA-Ar Total Score: 17 BHS COWS - Scale Resting Pulse: 1= ID 81-100 Sweatin= Chills/Flushing Restless Observation: 3= Extraneous Movement Pupil Size: 1= Pupils >than Normal Bone or Joint Aches: 2= Severe Diffuse Aches Runny Nose/ Eye Tearin= Runny Nose/Eyes GI Upset > 30mins: 2= Nausea/Diarrhea Tremor Observation of Outstretched Hands: 2= Slight Tremor Visible Yawning Observation: 1= 1-2x During Session Anxiety or Irritability: 2=Irritable/Anxious Goose Flesh Skin: 0=Smooth Skin COWS Score: 17 [facility] Progress Note (SOAP) Subjective: alert,irritable,interrupted sleep,tremor,pain in the dy and back Objective: 02/04/17 11:06 Vital Signs Temperature 98.6 F 02/04/17 10:18 Pulse Rate 92 H 02/04/17 10:18 Respiratory Rate 18 02/04/17 10:18 Blood Pressure 138/78 02/04/17 10:18 O2 Sat by Pulse Oximetry (%) ekg nsr,normal ecg Laboratory Last Values WBC 7.1 K/mm3 (4.0-10.0) D 02/04/17 06:00 RBC 5.62 M/mm3 (4.00-5.60) H D 02/04/17 06:00 Hgb 14.5 GM/dL (11.7-16.9) D 02/04/17 06:00 Hct 45.7 % (35.4-49) D 02/04/17 06:00 MCV 81.3 fl (80-96) 02/04/17 06:00 MCH 25.8 pg (25.7-33.7) 02/04/17 06:00 MCHC 31.8 g/dl (32.0-35.9) L 02/04/17 06:00 RDW 14.8 % (11.9-15.9) 02/04/17 06:00 Plt Count 252 K/MM3 (134-434) D 02/04/17 06:00 MPV 9.2 fl (7.5-11.1) 02/04/17 06:00 Sodium 138 mmol/L (136-145) 02/04/17 06:00 Potassium 4.1 mmol/L (3.5-5.1) 02/04/17 06:00 Chloride 102 mmol/L (98-107) 02/04/17 06:00 Carbon Dioxide 26 mmol/L (21-32) 02/04/17 06:00 Anion Gap 10 (8-16) 02/04/17 06:00 BUN 10 mg/dL (7-18) 02/04/17 06:00 Creatinine 0.8 mg/dL (0.7-1.3) 02/04/17 06:00 Creat Clearance w eGFR > 60 (>60) 02/04/17 06:00 Random Glucose 97 mg/dL (74-106) 02/04/17 06:00 Calcium 9.0 mg/dL (8.5-10.1) 02/04/17 06:00 Total Bilirubin 0.7 mg/dL (0.2-1.0) D 02/04/17 06:00 AST 46 U/L (15-37) H D 02/04/17 06:00 ALT 80 U/L (12-78) H D 02/04/17 06:00 Alkaline Phosphatase 97 U/L (45-117) 02/04/17 06:00 Total Protein 8.1 g/dl (6.4-8.2) D 02/04/17 06:00 Albumin 4.1 g/dl (3.4-5.0) D 02/04/17 06:00 Urine Color Itzel 02/03/17 15:00 Urine Appearance Cloudy 02/03/17 15:00 Urine pH 5.0 (5.0-8.0) 02/03/17 15:00 Ur Specific [place] 1.027 (1.001-1.035) 02/03/17 15:00 Urine Protein 1+ (NEGATIVE) H 02/03/17 15:00 Urine Glucose (UA) Negative (NEGATIVE) 02/03/17 15:00 Urine Ketones Trace (NEGATIVE) H 02/03/17 15:00 Urine Blood Negative (NEGATIVE) 02/03/17 15:00 Urine Nitrite Negative (NEGATIVE) 02/03/17 15:00 Urine Bilirubin Negative (NEGATIVE) 02/03/17 15:00 Urine Urobilinogen Negative mg/dL (0.2-1.0) 02/03/17 15:00 Ur Leukocyte Esterase Negative (NEGATIVE) 02/03/17 15:00 Urine WBC (Auto) 1 02/03/17 15:00 Urine RBC (Auto) 3 02/03/17 15:00 Hyaline Casts 16 /lpf 02/03/17 15:00 Urine Mucus Many 02/03/17 15:00 HIV 1&2 Antibody Screen Negative 02/03/17 12:50 HIV P24 Antigen Negative 02/03/17 12:50 Assessment: 02/04/17 11:07 withdrawal symptom Plan: continue detox,
--- NOTE | 2017-02-04 11:35 | CONSULT ---
[facility] Psychiatric Consult - Data Date of interview: 02/04/17 Admission source: [facility] Identifying data: One of several admissions to [facility] for this 41 y/o male seeking detoxification treatment on for alcohol,cocaine, benzodiazepine and heroin dependence.Patient is single without children, homeless ([facility] usp),unemployed and supported on food stamps. Substance Abuse History: Mr Hernandez admits to active use of cocaine,heroin, alcohol and klonopin as detailed in [facility] report. Smoking history: Current every day smoker. Have you smoked in the past 12 months: Yes. Aproximately how many cigarettes per day: 5. Hx Chewing Tobacco Use: No. Initiated information on smoking cessation: Yes. 'Breaking Loose' booklet given: 02/03/17. - Substance & Tx. History. Hx Alcohol Use: Yes. Hx Substance Use: Yes. Substance Use Type : Alcohol, Heroin, Marijuana, Opiates, Prescribed, Tranquilizers. Hx Substance Use [facility]: [facility] - Substances Abused. Heroin. Route: Injection. Frequency: Daily. Amount used: 4-5 bags. Age of first use: 27. Date of Last Use: 02/03/17. Cocaine. Route: Injection. Frequency: Daily. Amount used: $20-30. Age of first use: 27. Date of Last Use: 02/01/17. Benzodiazepine (Klonopin). Route: Oral. Frequency: Daily. Amount used: 1-2 tabs. Age of first use: 41. Date of Last Use: 02/02/17. Alcohol. Route: Oral. Frequency: 3-6 times per week. Amount used: vodka(1 pint)/cognac(1/2 -1 pint). Age of first use: 22. Date of Last Use: 02/03/17 Medical History: Hepatitis C. Psychiatric History: Patient admits to a history of two psychiatric hospitalizations ([facility] in 2016).Long standing history of mental illness.Diagnosed with Bipolar Disorder.Treated with various medications (olanzapine,risperdal,zoloft,lithium and others).Patient admits to previous suicide attempts via hanging (2002),jumping onto subway tracks and self mutilation (wrist cutting).Known to several facilities: [facility] in [id number] + [facility] in [id number] + [facility] in [phone].Mr Hernandez is no longer followed at the [facility] Help Plan program in [facility] (dischrged fronm that program : reasons not offered).He stopped taking lithium.Currrent regimen consists of zoloft 100 mg/day + zyprexa 10 mg/hs.Medications are confirmed by review of pharmacy claims (filled scripts for 02/02/17).Patient is no longer on methadone maintenance (60 mg/day).Mr Hernandez indicates that he is currently looking for another psychiatric OPD care provider. Physical/Sexual Abuse/Trauma History: No reported history of abuse. Additional Comment: Urine Drug Screen Results: SOURAV-Cocaine, OPI-Opiates, MTD- Methadone, OXY-Oxycodone.Noted. Mental Status Exam - Mental Status Exam Alert and Oriented to: Time, Place, Person Cognitive Function: Good Patient Appearance: Well Groomed Mood: Hopeful, Euthymic Affect: Appropriate, Normal Range Patient Behavior: Appropriate, Cooperative Speech Pattern: Clear Voice Loudness: Normal Thought Process: Intact, Goal Oriented Thought Disorder: Not Present Hallucinations: Denies Suicidal Ideation: Denies Homicidal Ideation: Denies Insight/Judgement: Poor Sleep: Poorly, Difficulty falling asleep Appetite: Good Muscle strength/Tone: Normal Gait/Station: Normal Psychiatric Findings - Problem List ([place] 1, 2,3) (1) Alcohol dependence with uncomplicated withdrawal Current Visit: Yes Status: Acute (2) Cocaine dependence, uncomplicated Current Visit: Yes Status: Acute (3) Opioid dependence with withdrawal Current Visit: No Status: Acute (4) Nicotine dependence Current Visit: Yes Status: Acute Qualifiers: (5) Substance induced mood disorder Current Visit: Yes Status: Acute (6) Schizoaffective disorder Current Visit: Yes Status: Chronic Qualifiers: (7) Insomnia Current Visit: Yes Status: Acute - Initial Treatment Plan Initial Treatment Plan: Psychoeducation.Sleep hygiene.Detoxification.Medications : zoloft 100 mg po daily + olanzapine 10 mg po hs.Side effects/benefits discussed with the patient.He agrees with this careplan.Medications are confirmed by pharmacy claims of .Observation.NO scripts required at discharge from [facility] (refiils available from OPD provider).
[2017-02-04] MEDS ORDERED: SERTRALINE HCL 50 MG TABLET (FP) PO ONE (11:40)
[2017-02-04] MEDS ORDERED: cloNIDine HCL 0.1 MG TABLET PO SCH (22:00)
[2017-02-04] MEDS: OLANZapine 10 MG TABLET PO SCH (22:34)
[2017-02-04] MEDS: THIAMINE HCL 100 MG TABLET (FP) PO SCH (22:34)
[2017-02-05] MEDS: diazePAM 5 MG TABLET PO PRN ×2 (05:54→17:06)
--- NOTE | 2017-02-05 09:08 | PN ---
[facility] CIWA - CIWA Score Nausea/Vomitin-No Nausea/No Vomiting Muscle Tremors: 3 Anxiety: 4-Mod. Anxious/Guarded Agitation: 3 Paroxysmal Sweats: 3 Orientation: 0-Oriented Tacttile Disturbances: 0-None Auditory Disturbances: 0-None Visual Disturbances: 0-None Headache: 0-None Present CIWA-Ar Total Score: 13 BHS COWS - Scale Resting Pulse: 0= GA 80 or Below Sweatin=Flushed/Facial Moisture Restless Observation: 1= Difficult to Sit Still Pupil Size: 0= Normal to Room Light Bone or Joint Aches: 1= Mild Discomfort Runny Nose/ Eye Tearin= Nasal Congestion GI Upset > 30mins: 1= Stomach Cramp Tremor Observation of Outstretched Hands: 2= Slight Tremor Visible Yawning Observation: 1= 1-2x During Session Anxiety or Irritability: 1=Feels Anxious/Irritable Goose Flesh Skin: 0=Smooth Skin COWS Score: 10 BHS Progress Note (SOAP) Subjective: sweating,interrupted sleep,tremors,restless. Pt. c/o feeling weak, he was started on clonidine & flexeril, we'll put both on hild until pt. feels better. Objective: 02/05/17 09:08 Vital Signs - 8 hr 02/05/17 02/05/17 03:30 06:00 Temperature 97.5 F L Pulse Rate 65 Respiratory 18 18 Rate Blood Pressure 119/66 Laboratory Tests 02/03/17 02/03/17 02/04/17 12:50 15:00 06:00 WBC 7.1 D RBC 5.62 H D Hgb 14.5 D Hct 45.7 D MCV 81.3 MCH 25.8 MCHC 31.8 L RDW 14.8 Plt Count 252 D MPV 9.2 Sodium Potassium Chloride Carbon Dioxide Anion Gap BUN Creatinine Creat Clearance w eGFR Random Glucose Calcium Total Bilirubin AST ALT Alkaline Phosphatase Total Protein Albumin Urine Color Itzel Urine Appearance Cloudy Urine pH 5.0 Ur Specific [place] 1.027 Urine Protein 1+ H Urine Glucose (UA) Negative Urine Ketones Trace H Urine Blood Negative Urine Nitrite Negative Urine Bilirubin Negative Urine Urobilinogen Negative Ur Leukocyte Esterase Negative Urine WBC (Auto) 1 Urine RBC (Auto) 3 Hyaline Casts 16 Urine Mucus Many RPR Titer HIV 1&2 Antibody Screen Negative HIV P24 Antigen Negative 02/04/17 02/04/17 06:00 06:00 WBC RBC Hgb Hct MCV MCH MCHC RDW Plt Count MPV Sodium 138 Potassium 4.1 Chloride 102 Carbon Dioxide 26 Anion Gap 10 BUN 10 Creatinine 0.8 Creat Clearance w eGFR > 60 Random Glucose 97 Calcium 9.0 Total Bilirubin 0.7 D AST 46 H D ALT 80 H D Alkaline Phosphatase 97 Total Protein 8.1 D Albumin 4.1 D Urine Color Urine Appearance Urine pH Ur Specific [place] Urine Protein Urine Glucose (UA) Urine Ketones Urine Blood Urine Nitrite Urine Bilirubin Urine Urobilinogen Ur Leukocyte Esterase Urine WBC (Auto) Urine RBC (Auto) Hyaline Casts Urine Mucus RPR Titer Nonreactive HIV 1&2 Antibody Screen HIV P24 Antigen labs noted Assessment: 02/05/17 09:08 Withdrawal sx. Plan: Continue detox Hold clonidine & flexeril
[2017-02-05] MEDS: diazePAM 5 MG TABLET PO SCH ×2 (11:02→22:42)
[2017-02-05] MEDS: PRENATAL VITAMINS W/ FOLIC ACID TABLET (FP) PO SCH (11:03)
[2017-02-05] MEDS: METHADONE HCL 5 MG TABLET (FOR DETOX USE ONLY) PO SCH (11:03)
[2017-02-05] MEDS: NICOTINE 14 MG/24 HOURS TOPICAL PATCH TD SCH (11:03)
[2017-02-05] MEDS: SERTRALINE HCL 50 MG TABLET (FP) PO SCH (11:03)
[2017-02-05] MEDS: OLANZapine 10 MG TABLET PO SCH (22:42)
[2017-02-05] MEDS: THIAMINE HCL 100 MG TABLET (FP) PO SCH (22:42)
[2017-02-06] MEDS: diazePAM 5 MG TABLET PO PRN ×2 (08:41→13:27)
[2017-02-06] MEDS: SERTRALINE HCL 50 MG TABLET (FP) PO SCH (10:20)
[2017-02-06] MEDS: PRENATAL VITAMINS W/ FOLIC ACID TABLET (FP) PO SCH (10:20)
[2017-02-06] MEDS: NICOTINE 14 MG/24 HOURS TOPICAL PATCH TD SCH (10:21)
[2017-02-06] MEDS: METHADONE HCL 5 MG TABLET (FOR DETOX USE ONLY) PO SCH (10:21)
[2017-02-06] MEDS: diazePAM 5 MG TABLET PO SCH ×2 (10:28→22:25)
--- NOTE | 2017-02-06 13:20 | PN ---
[facility]HS Progress Note (SOAP) Subjective: Sweating,interrupted sleep,restless. No longer feeling weak. Objective: 02/06/17 13:19 Vital Signs - 8 hr 02/06/17 02/06/17 06:00 09:31 Temperature 97.7 F 97.9 F Pulse Rate 58 L 73 Respiratory 18 18 Rate Blood Pressure 126/67 130/94 Laboratory Last Values WBC 7.1 K/mm3 (4.0-10.0) D 02/04/17 06:00 RBC 5.62 M/mm3 (4.00-5.60) H D 02/04/17 06:00 Hgb 14.5 GM/dL (11.7-16.9) D 02/04/17 06:00 Hct 45.7 % (35.4-49) D 02/04/17 06:00 MCV 81.3 fl (80-96) 02/04/17 06:00 MCH 25.8 pg (25.7-33.7) 02/04/17 06:00 MCHC 31.8 g/dl (32.0-35.9) L 02/04/17 06:00 RDW 14.8 % (11.9-15.9) 02/04/17 06:00 Plt Count 252 K/MM3 (134-434) D 02/04/17 06:00 MPV 9.2 fl (7.5-11.1) 02/04/17 06:00 Sodium 138 mmol/L (136-145) 02/04/17 06:00 Potassium 4.1 mmol/L (3.5-5.1) 02/04/17 06:00 Chloride 102 mmol/L (98-107) 02/04/17 06:00 Carbon Dioxide 26 mmol/L (21-32) 02/04/17 06:00 Anion Gap 10 (8-16) 02/04/17 06:00 BUN 10 mg/dL (7-18) 02/04/17 06:00 Creatinine 0.8 mg/dL (0.7-1.3) 02/04/17 06:00 Creat Clearance w eGFR > 60 (>60) 02/04/17 06:00 Random Glucose 97 mg/dL (74-106) 02/04/17 06:00 Calcium 9.0 mg/dL (8.5-10.1) 02/04/17 06:00 Total Bilirubin 0.7 mg/dL (0.2-1.0) D 02/04/17 06:00 AST 46 U/L (15-37) H D 02/04/17 06:00 ALT 80 U/L (12-78) H D 02/04/17 06:00 Alkaline Phosphatase 97 U/L (45-117) 02/04/17 06:00 Total Protein 8.1 g/dl (6.4-8.2) D 02/04/17 06:00 Albumin 4.1 g/dl (3.4-5.0) D 02/04/17 06:00 Urine Color Itzel 02/03/17 15:00 Urine Appearance Cloudy 02/03/17 15:00 Urine pH 5.0 (5.0-8.0) 02/03/17 15:00 Ur Specific [place] 1.027 (1.001-1.035) 02/03/17 15:00 Urine Protein 1+ (NEGATIVE) H 02/03/17 15:00 Urine Glucose (UA) Negative (NEGATIVE) 02/03/17 15:00 Urine Ketones Trace (NEGATIVE) H 02/03/17 15:00 Urine Blood Negative (NEGATIVE) 02/03/17 15:00 Urine Nitrite Negative (NEGATIVE) 02/03/17 15:00 Urine Bilirubin Negative (NEGATIVE) 02/03/17 15:00 Urine Urobilinogen Negative mg/dL (0.2-1.0) 02/03/17 15:00 Ur Leukocyte Esterase Negative (NEGATIVE) 02/03/17 15:00 Urine WBC (Auto) 1 02/03/17 15:00 Urine RBC (Auto) 3 02/03/17 15:00 Hyaline Casts 16 /lpf 02/03/17 15:00 Urine Mucus Many 02/03/17 15:00 RPR Titer Nonreactive (NONREACTIVE) 02/04/17 06:00 HIV 1&2 Antibody Screen Negative 02/03/17 12:50 HIV P24 Antigen Negative 02/03/17 12:50 labs noted Assessment: 02/06/17 13:19 Withdrawal sx. Plan: Continue detox
[2017-02-06] MEDS ORDERED: IBUPROFEN 400 MG TABLET (FP) PO PRN (13:21)
[2017-02-06] MEDS: hydrOXYzine PAMOATE 50 MG CAPSULE (FP) PO PRN (17:30)
[2017-02-06] MEDS: THIAMINE HCL 100 MG TABLET (FP) PO SCH (22:24)
[2017-02-06] MEDS: OLANZapine 10 MG TABLET PO SCH (22:24)
[2017-02-07] MEDS ORDERED: diazePAM 5 MG TABLET PO SCH (10:00)
[2017-02-07] MEDS ORDERED: METHADONE HCL 10 MG TABLET (FOR DETOX USE ONLY) PO SCH (10:00)
--- NOTE | 2017-02-07 10:09 | PN ---
S Progress Note (SOAP) Subjective: alert,irritable,anxious,interrupted sleep Objective: 02/07/17 10:08 Vital Signs Temperature 96.4 F L 02/07/17 06:04 Pulse Rate 52 L 02/07/17 06:04 Respiratory Rate 16 02/07/17 06:04 Blood Pressure 106/63 02/07/17 06:04 O2 Sat by Pulse Oximetry (%) Assessment: 02/07/17 10:08 withdrawal symptom Plan: continue detox,discharge in am
[2017-02-07] MEDS: PRENATAL VITAMINS W/ FOLIC ACID TABLET (FP) PO SCH (10:24)
[2017-02-07] MEDS: NICOTINE 14 MG/24 HOURS TOPICAL PATCH TD SCH (10:24)
[2017-02-07] MEDS: SERTRALINE HCL 50 MG TABLET (FP) PO SCH (10:24)
[2017-02-07] MEDS: hydrOXYzine PAMOATE 50 MG CAPSULE (FP) PO PRN (12:20)
[2017-02-07] MEDS: THIAMINE HCL 100 MG TABLET (FP) PO SCH (22:13)
[2017-02-07] MEDS: OLANZapine 10 MG TABLET PO SCH (22:13)
[2017-02-08] MEDS ORDERED: METHADONE HCL 5 MG TABLET (FOR DETOX USE ONLY) PO SCH (06:00)
--- NOTE | 2017-02-08 07:31 | DS ---
[facility] Detox Discharge Summary Admission Date: 02/03/17 Discharge Date: 02/08/17 - History Present History: Alcohol Dependence, Cocaine Dependence, Opioid Dependence Additional Comments: follow up with after care program as arrangement Pertinent Past History: essential hypertension hepatitis c schizoaffective disorder nicotine dependence - Physical Exam Results Vital Signs: Vital Signs Temperature 97.5 F L 02/08/17 06:27 Pulse Rate 56 L 02/08/17 06:27 Respiratory Rate 16 02/08/17 06:27 Blood Pressure 116/74 02/08/17 06:27 O2 Sat by Pulse Oximetry (%) Pertinent Admission Physical Exam Findings: withdrawal symptom - Treatment Hospital Course: Detox Protocol Followed, Detoxed Safely, Responded well, Discharged Condition Good, Rehab Referral Accepted Patient has Accepted a Rehab Referral to: [facility] - Medication Discharge Medications: Ambulatory Orders Olanzapine [Zyprexa -] 10 mg PO HS MDD 10 MG 10/11/16 Sertraline HCl [Zoloft -] 100 mg PO DAILY MDD 100 MG 10/11/16 - Diagnosis (1) Opioid dependence with withdrawal Current Visit: No Status: Acute (2) Hepatitis C Current Visit: Yes Status: Acute Qualifiers: Viral hepatitis chronicity: chronic Hepatic coma status: without hepatic coma Qualified Code(s): B18.2 - Chronic viral hepatitis C (3) Alcohol dependence with uncomplicated withdrawal Current Visit: Yes Status: Acute (4) Cannabis dependence, uncomplicated Current Visit: Yes Status: Acute (5) Cocaine dependence, uncomplicated Current Visit: Yes Status: Acute (6) Nicotine dependence Current Visit: Yes Status: Acute Qualifiers: Nicotine product type: cigarettes Substance use status: uncomplicated Qualified Code(s): F17.210 - Nicotine dependence, cigarettes, uncomplicated (7) PCP dependence Current Visit: No Status: Acute (8) Essential hypertension Current Visit: No Status: Chronic (9) Schizoaffective disorder Current Visit: Yes Status: Chronic Qualifiers: - AMA Did Patient Leave Against Medical Advice: No
[2017-02-08 09:51] VITALS: BP 140/91; PULSE 80; TEMP 98.2
[2017-02-08] MEDS: SERTRALINE HCL 50 MG TABLET (FP) PO SCH (10:53)
[2017-02-08] MEDS: PRENATAL VITAMINS W/ FOLIC ACID TABLET (FP) PO SCH (10:53)
[2017-02-08] MEDS: NICOTINE 14 MG/24 HOURS TOPICAL PATCH TD SCH (10:55)
== END 2017-02-08 11:12 | disposition home or self-care (01) | DRG 773 ==
LOC: YASAS 10:05 → Y6N 13:46
PROVIDERS: ADMIT Internal Medicine; ATTEND Internal Medicine
PROC: HZ2ZZZZ Detoxification Services for Substance Abuse Treatment (ICD-10-PCS; principal; 2017-02-03)
DX: F11.23 Opioid dependence with withdrawal (principal); F10.230 Alcohol dependence with withdrawal, uncomplicated; F14.20 Cocaine dependence, uncomplicated; F12.20 Cannabis dependence, uncomplicated; F16.20 Hallucinogen dependence, uncomplicated; F17.210 Nicotine dependence, cigarettes, uncomplicated; F25.9 Schizoaffective disorder, unspecified; F19.24 Other psychoactive substance dependence with psychoactive substance-induced mood disorder; G47.00 Insomnia, unspecified; B18.2 Chronic viral hepatitis C; Z91.5 Personal history of self-harm
CPT/HCPCS: 36415; 80053; 81003; 81015; 85027; 86593; 87389; 93005; 93010